=== PATIENT | male | born 1955 | race Caucasian/White ===

== ENCOUNTER → 2016-11-28 | Outpatient (CLI) | payer BC ==
[~2016-11-28] MED LIST: AUGMENTIN875 M1 PO; LEVAQUIN750 MG PO; PROBIOTIC250 MG PO; VENTOLIN HFA
--- NOTE | ~2016-11-28 | CT55 ---
[facility] A Service of [facility] RADIOLOGY TEXT RESULTS PATIENT: CATHY DOOLEY JR LOCATION: [facility] : 53 UNIT #: [id number] AGE: [address]: Henrry Baker MD SEX: M ORDER DR: [id number] [facility]. [place], [place] [address] [id number] O MR#: [id number] Acc #: [id number] NAME: CATHY DOOLEY JR : 1955 SEX: M STUDY DATE/TIME: 11/28/2016 11:07 UNIT: [facility] ROOM: STUDY DESCRIPTION: CT Chest W Con Attending Physician: Henrry Baker M.D. Referring Physician: Henrry Baker M.D. Ordering Physician: Henrry Baker M.D. Primary Care Physician[facility] This report is preliminary unless electronic signature is present EXAM CT chest, 11/28/2016 INDICATION Abnormal thoracic lymphadenopathy. Renal cell carcinoma with metastatic disease. Malignant neoplasm of the right kidney with metastatic disease. TECHNIQUE CT of the chest utilizing 100 mL Isovue-370 IV contrast. Coronal and sagittal reconstructions were obtained. This CT exam was performed with one or more of the following radiation dose reduction techniques: automatic exposure control, adjustment of mA and/or kV according to patient size, and iterative reconstruction. COMPARISON Concurrent CT abdomen and pelvis dated 11/28/[address] chest and abdomen dated 07/11/2016. FINDINGS The subcarinal lymph node conglomeration is fairly similar to the prior study. This measures 6.1 cm x 3.2 cm compared to 3.1 cm x 3.4 cm previously. This abuts the rightward margin of the esophagus. Soft tissue extending along the posterior margin of the trachea is unchanged. No new or enlarging lymph nodes. Thoracic aorta is normal in caliber. No pericardial or pleural effusion. Please refer to a separately dictated report for details on the abdomen. There are no suspicious osseous abnormalities. [facility] A Service of [facility] RADIOLOGY TEXT RESULTS PATIENT: CATHY DOOLEY JR LOCATION: [facility] : 53 UNIT #: [id number] AGE: [address]: Henrry Baker MD SEX: M ORDER DR: IMPRESSION 1. The subcarinal lymph node conglomeration is unchanged from the prior study of 07/11/2016. 2. No evidence of disease progression. Dictated by... Bao Redmond M.D. THIS IS AN ELECTRONICALLY VERIFIED REPORT Bao Redmond M.D. at 11/29/2016 8:19 AM SOWMYA/ashley TD: 11/28/2016 21:59 JOB #: [id number] MEDICAL IMAGING REPORT COPY
--- NOTE | ~2016-11-28 | CT2 ---
[facility] A Service of [facility] RADIOLOGY TEXT RESULTS PATIENT: CATHY DOOLEY JR LOCATION: [facility] : 53 UNIT #: [id number] AGE: [address]: Henrry Baker MD SEX: M ORDER DR: [id number] [facility]. [place], [place] [address] [id number] O MR#: [id number] Acc #: [id number] NAME: CATHY DOOLEY JR : 1955 SEX: M STUDY DATE/TIME: 11/28/2016 11:07 UNIT: [facility] ROOM: STUDY DESCRIPTION: CT Abd and Pelv W Cont Attending Physician: Henrry Baker M.D. Referring Physician: Henrry Baker M.D. Ordering Physician: Henrry Baker M.D. Primary Care Phys[facility] REPORT This report is preliminary unless electronic signature is present EXAM CT abdomen and pelvis, 11/28/2016 INDICATION Renal cell carcinoma of the right kidney. Restaging. Observation for metastatic disease. TECHNIQUE CT of the abdomen and pelvis with p.o. and IV contrast (100 mL Isovue-370 IV contrast). Coronal and sagittal reconstructions were obtained. This CT exam was performed with one or more of the following radiation dose reduction techniques: automatic exposure control, adjustment of mA and/or kV according to patient size, and iterative reconstruction. COMPARISON Concurrent CT chest dated 11/28/[address] chest, abdomen, and pelvis dated 07/11/2016. FINDINGS Patient has undergone right nephrectomy and right adrenalectomy. There is no evidence of a recurrent residual mass at the surgical site. The liver, gallbladder, pancreas, spleen, left adrenal gland and left kidney are within normal limits. No left hydronephrosis. The bowel is not dilated. There is a prominent left-sided colonic diverticula. No enlarged retroperitoneal or mesenteric lymph nodes. left-sided colonic diverticula. No enlarged retroperitoneal or mesenteric lymph nodes. The abdominal aorta is normal in caliber. [facility] A Service of [facility] RADIOLOGY TEXT RESULTS PATIENT: CATH[facility] DOOLEY JR [id number] 53 UNIT #: [id number] AGE: [address]: Henrry Baker MD SEX: M ORDER DR: PELVIS: No pelvic mass or free pelvic fluid. Bladder is unremarkable. No enlarged pelvic or inguinal lymph nodes. No acute osseous abnormalities. IMPRESSION 1. No evidence of metastatic disease in the abdomen and pelvis in a patient status post right nephrectomy and right adrenalectomy. 2. Please refer to a separately dictated report for details on the chest. Dictated by... Bao Redmond M.D. THIS IS AN ELECTRONICALLY VERIFIED REPORT Bao Redmond M.D. at 11/29/2016 8:19 AM SOWMYA/ashley TD: 11/28/2016 22:15 JOB #: [id number] MEDICAL IMAGING REPORT COPY
[2016-11-28 14:06] LABS: POC - CREATININE 1.14 mg/dL (0.64-1.27); POC - GFR >60.0 mL/min (>60)
== END | disposition home or self-care (01) ==
LOC: CCAT 09:41
PROVIDERS: Internal Medicine Hematology
DX: C34.90 Malignant neoplasm of unspecified part of unspecified bronchus or lung (principal); C64.9 Malignant neoplasm of unspecified kidney, except renal pelvis
CPT/HCPCS: 71260; 74177; 82565; Q9967

== ENCOUNTER → 2017-04-26 | Outpatient (CLI) | payer BC ==
--- NOTE | ~2017-04-26 | CT2 ---
[facility] A Service of [facility] RADIOLOGY TEXT RESULTS PATIENT: CATHY DOOLEY JR LOCATION: [facility] : 53 UNIT #: [id number] AGE: [address]: Henrry Baker MD SEX: M ORDER DR: [id number] [facility] [address] [place], [place] [address] [id number] O MR#: [id number] Acc #: [id number] NAME: CATHY DOOLEY JR : 1955 SEX: M STUDY DATE/TIME: 04/26/2017 10:17 UNIT: [facility] ROOM: STUDY DESCRIPTION: CT Abd and Pelv W Cont Attending Physician: Henrry Baker M.D. Referring Physician: Henrry Baker M.D. Ordering Physician: Henrry Baker M.D. Primary Care Physician: Jaclyn Herrera M.D. MEDICAL IMAGING REPORT This report is preliminary unless electronic signature is present EXAM CT abdomen and pelvis with contrast INDICATION Renal cell carcinoma restaging. Observation for metastatic disease. Disease progression. PROCEDURE Contrast-enhanced CT of the abdomen and pelvis. This CT examination was performed with one or more of the following radiation dose reduction techniques: automatic exposure control, adjustment of mA and/or kV according to patient size, and iterative reconstruction. COMPARISON 11/28/2016. FINDINGS Refer to the separately dictated chest CT for thoracic findings. ABDOMEN WITH CONTRAST: Liver, spleen, pancreas and gallbladder unremarkable. Bowel loops nondilated. Uncomplicated sigmoid diverticula. Moderate colonic stool burden. Appendix is normal. Patient is status post right nephrectomy and adrenalectomy. No new abnormal nodularity in the nephrectomy bed. No abdominal adenopathy. PELVIS WITH CONTRAST: No pelvic mass or fluid. No aggressive appearing bone lesion. IMPRESSION 1. Previous right nephrectomy and adrenalectomy. No evidence for STS. [facility] A Service of [facility] RADIOLOGY TEXT RESULTS PATIENT: CATHY DOOLEY JR LOCATION: [facility] : 53 UNIT #: [id number] AGE: [address]: Henrry Baker MD SEX: M ORDER DR: metastatic disease to the abdomen or pelvis. 2. Refer to the separately dictated chest CT. Dictated by... Shan Rios M.D. THIS IS AN ELECTRONICALLY VERIFIED REPORT Sahn Rios M.D. at 05/01/2017 8:18 AM ANGELY/wendy TD: 04/27/2017 08:28 JOB #: [id number] MEDICAL IMAGING REPORT Page 1 of 1 COPY
--- NOTE | ~2017-04-26 | CT55 ---
[facility] A Service [facility] RADIOLOGY TEXT RESULTS PATIENT: CATHY DOOLEY JR LOCATION: [facility] : 53 UNIT #: [id number] AGE: [address]: Henrry Baker MD SEX: M ORDER DR: [id number] [facility] [address] [place], [place] [address] [id number] O MR#: [id number] Acc #: [id number] NAME: CATHY DOOLEY JR : 1955 SEX: M STUDY DATE/TIME: 04/26/2017 10:17 UNIT: [facility] ROOM: STUDY DESCRIPTION: CT Chest W Con Attending Physician: Henrry Baker M.D. Referring Physician: Hnerry Baker M.D. Ordering Physician: Henrry Baker M.D. Primary Care Physician: Jaclyn Herrera M.D. MEDICAL IMAGING REPORT This report is preliminary unless electronic signature is present EXAM CT chest with contrast INDICATION Renal cell carcinoma, restaging. Observation for metastatic disease. PROCEDURE Contrast-enhanced CT of the chest. This CT exam was performed with one or more of the following radiation dose reduction techniques: automatic exposure control, adjustment of mA and/or kV according to patient size, and iterative reconstruction. COMPARISON 11/28/2016 FINDINGS No suspicious pulmonary nodule. Subcarinal adenopathy measures 6.3 x 3.3 cm not significantly changed from the previous study when allowing for differences in measurement technique. No new or enlarging adenopathy in the chest. No aggressive appearing bone lesion. IMPRESSION No evidence for disease progression. Subcarinal adenopathy is not significantly changed. Dictated by... Shan Rios M.D. THIS IS AN ELECTRONICALLY VERIFIED REPORT Shan Rios M.D. at 05/01/2017 8:[address] [facility] A Service [facility] RADIOLOGY TEXT RESULTS PATIENT: CATHY DOOLEY JR LOCATION: [facility] #: [id number] : 53 UNIT #: [id number] AGE: [address]: Henrry Baker MD SEX: M ORDER DR: TD: 04/27/2017 08:19 JOB #: [id number] MEDICAL IMAGING REPORT Page 1 of 1 COPY
[2017-04-27 06:51] LABS: POC - CREATININE 1.18 mg/dL (0.64-1.27); POC - GFR >60.0 mL/min (>60)
== END | disposition home or self-care (01) ==
LOC: CCAT 09:26
PROVIDERS: Internal Medicine Hematology
DX: C64.1 Malignant neoplasm of right kidney, except renal pelvis (principal); C34.90 Malignant neoplasm of unspecified part of unspecified bronchus or lung; R59.0 Localized enlarged lymph nodes; E89.6 Postprocedural adrenocortical (-medullary) hypofunction; Z90.5 Acquired absence of kidney
CPT/HCPCS: 71260; 74177; 82565; Q9967